=== PATIENT | male | born 2000 | race African-American/Black ===

== ENCOUNTER 2023-06-08 20:32 | Emergency (ER) | payer OTHER ==
[2023-06-08 20:39] VITALS: TEMP 98.9; BMI 28.4
[2023-06-08] MEDS ORDERED: ACETAMINOPHEN 500 MG TABLET (FP) PO ONE (22:15)
[2023-06-08] MEDS ORDERED: ACETAMINOPHEN 500 MG TABLET (FP) ONE (22:20)
[2023-06-08 22:23] VITALS: BP 115/70; PULSE 98; RESP 19
== END 2023-06-08 22:24 | disposition home or self-care (01) ==
LOC: JER 20:32
DX: R06.02 Shortness of breath (principal); R05.9 Cough, unspecified; R09.81 Nasal congestion; J10.1 Influenza due to other identified influenza virus with other respiratory manifestations; Z20.822 Contact with and (suspected) exposure to COVID-19
CPT/HCPCS: 0241U-QW; 87651; 93005; 93010; 99284-25

== ENCOUNTER 2023-09-10 17:02 | Emergency (ER) | payer OTHER ==
[2023-09-10 17:25] VITALS: TEMP 97.8; BMI 27.8
[2023-09-10 19:33] LABS: BASO % 0.4 % (0-2.0); HEMATOCRIT 34.6 % (35.4-49); LYMPH % 46.2 % (8-40); MCH 23.7 pg (25.7-33.7); MCHC 31.8 g/dl (32.0-35.9); MEAN CELL VOLUME 74.5 fl (80-96); MONO % 7.6 % (3.8-10.2); NEUT % 45.8 % (42.8-82.8); PLATELET COUNT 200 10^3/uL (134-434); RBC 4.64 M/mm3 (4.00-5.60); RDW 13.7 % (11.9-15.9); WHITE BLOOD COUNT 4.4 K/mm3 (4.0-10.0)
[2023-09-10 20:30] LABS: CHLORIDE 109 mmol/L (98-107); POTASSIUM 4.3 mmol/L (3.5-5.1); SODIUM 138 mmol/L (136-145)
[2023-09-10 20:33] LABS: ALBUMIN 4.3 g/dl (3.4-5.0); ANION GAP 5 mmol/L (4-13); BLOOD UREA NITROGEN 20.9 mg/dL (7-18); CO2 25 mmol/L (21-32); GLUCOSE,RANDOM 99 mg/dL (74-106)
[2023-09-10 20:36] LABS: CREATININE 0.9 mg/dL (0.55-1.3); SGOT/AST 25 U/L (15-37); SGPT/ALT 29 U/L (13-61)
[2023-09-10 20:37] LABS: TOT PROT 7.5 g/dl (6.4-8.2)
[2023-09-10 20:38] LABS: BILIRUBIN,TOTAL 0.3 mg/dL (0.2-1)
[2023-09-10 20:39] LABS: ALK PHOS 149 U/L (45-117)
[2023-09-10 20:41] LABS: N-TERMINAL BNP 14.9 pg/ml (5-125)
[2023-09-10 22:09] LABS: ERYTHROCYTE SEDIMENTATION RATE 8 mm/hr (0-10)
[2023-09-10 23:56] VITALS: BP 120/76; PULSE 82; RESP 19
== END 2023-09-11 00:06 | disposition home or self-care (01) ==
LOC: JER 17:02
DX: R07.89 Other chest pain (principal); I77.810 Thoracic aortic ectasia
CPT/HCPCS: 36415; 71046-TC-FY; 71275-TC; 80053; 82550; 83880; 84484; 85025; 85651; 86140; 93005; 93010; 99285-25; Q9967

== ENCOUNTER 2024-05-08 10:24 | Emergency (ER) | payer SELFPAY ==
[2024-05-08 10:48] VITALS: BP 112/74; PULSE 77; RESP 17; TEMP 98.1; BMI 27.8
[2024-05-08] MEDS ORDERED: ACETAMINOPHEN 325 MG TABLET (FP) ONE (11:25)
[2024-05-08] MEDS: ACETAMINOPHEN 325 MG TABLET (FP) PO ONE (11:28)
== END 2024-05-08 13:08 | disposition home or self-care (01) ==
LOC: JERFT 10:24 → JER 10:24 → JERFT 13:08
DX: S83.92XA Sprain of unspecified site of left knee, initial encounter (principal); W01.0XXA Fall on same level from slipping, tripping and stumbling without subsequent striking against object, initial encounter; Y93.67 Activity, basketball
CPT/HCPCS: 73562-TC-LT-FY; 99283-25